=== PATIENT | female | born 1990 | race Two or more races ===

== ENCOUNTER 2016-11-28 21:03 | Emergency (ER) | payer MEDICAID, OTHER ==
[2016-11-28 21:40] LABS: PH,URINE 6.5 (5.0-8.0); SPECIFIC GRAVITY 1.015 (1.001-1.030); URINE APPEARANCE HAZY; URINE BILIRUBIN NEGATIVE (NEGATIVE); URINE BLOOD TRACE (NEGATIVE); URINE COLOR YELLOW; URINE GLUCOSE (UA) NEGATIVE (NEGATIVE); URINE LEUKOCYTE ESTERASE TRACE (NEGATIVE); URINE NITRITE NEGATIVE (NEGATIVE); URINE PROTEIN NEGATIVE (NEGATIVE); URINE UROBILINOGEN NORMAL (0-1 mg/dl)
[2016-11-28 21:44] LABS: ABSOLUTE NEUTROPHIL COUNT 9.6 K/mm3 (1.8-7.7); BASO % 0.3 % (0.2-1.0); EOS # 0.1 (0.0-0.5); EOS % 0.9 % (0.9-2.9); HEMATOCRIT 39.5 % (37.0-47.0); HEMOGLOBIN 13.1 gm/l (12.0-16.0); IMM NEUT # 0.1 K/mm3 (0-0.2); IMM NEUT% 0.4 % (0-1); LYMPH # 2.2 (1.0-4.8); LYMPH % 17.1 % (15-45); MEAN CELL VOLUME 81.6 fl (81.0-99.0); MEAN CORPUSCULAR HEMOGLOBIN 27.1 pg (27.0-31.0); MEAN CORPUSCULAR HGB CONC 33.2 g/dl (33.0-37.0); MEAN PLATELET VOLUME 10.3 fl (7.4-10.4); MONO % 7.5 % (4-12); NEUT % 73.8 % (43-75); PLATELET COUNT 336 K/mm3 (130-400); RED CELL DISTRIBUTION WIDTH 13.2 % (11.5-14.5)
[2016-11-28 21:45] LABS: URINE EPITHELIAL CELLS 15-20 /hpf; URINE RBC 0-1 /hpf; URINE WBC 0-1 /hpf
[2016-11-28 21:46] LABS: URINE BACTERIA 1+
--- NOTE | 2016-11-29 08:12 | US ---
OB ULTRASOUND LESS THAN 14 WEEKS HISTORY: Pelvic pain, 7 weeks 1 day. Transabdominal and transvaginal obstetric ultrasound was performed. FINDINGS: INTRAUTERINE GESTATION: Small saclike structure noted. MEAN SAC DIAMETER: 0.5 cm, corresponding to an age of 4 weeks 3 days. Embryo: Not seen. SONOGRAPHIC MEAN GESTATIONAL AGE: 4 weeks 3 days. SONOGRAPHIC EDC: 08/04/2017. YOLK SAC: Small yolk sac is suggested. SAM-GESTATIONAL HEMORRHAGE: Not identified. RIGHT OVARY: 3.8 x 3.9 x 2.7 cm. LEFT OVARY: Surgically absent. FOCAL ADNEXAL LESIONS: Right paraovarian cyst, 3.6 x 1.8 x 2.5 cm, similar lesion on 2015 pelvic sonography. Complex cystic focus of the right ovary, 2.1 x 1.5 x 1.7 cm. OVARIAN BLOOD FLOW: Documented bilaterally. FREE FLUID: None. IMPRESSION: 1. Findings compatible with very early gestation sonographically dating 4 weeks 3 days. Recommend follow-up with beta hCG values and/or imaging. 2. Redemonstration of right paraovarian cyst. Complex cystic lesion may simply relate to corpus luteum. 3. Status post left nephrectomy. 4. No gross free fluid. Preliminary report relayed to the Emergency Medicine medical service by Dr. Virgen on 11/28/2016 at 2236 hours.
[2016-11-30 12:26] LABS: CHLAMYDIA BD Negative (Negative); N.GONORRHOEAE BD Negative (Negative); SOURCE Urine (())
== END 2016-11-29 00:43 | disposition home or self-care (01) ==
LOC: ED 21:03
DX: O34.81 Maternal care for other abnormalities of pelvic organs, first trimester (principal); N83.201 Unspecified ovarian cyst, right side; Z3A.01 Less than 8 weeks gestation of pregnancy

== ENCOUNTER 2017-01-07 21:01 | Emergency (ER) | payer MEDICAID, OTHER ==
[2017-01-07] MEDS ORDERED: LACTATED RINGERS 1,000 ML ONE (22:42)
[2017-01-07] MEDS ORDERED: ONDANSETRON 4 MG/2ML 2 ML VIAL ONE (22:42)
[2017-01-07 23:14] LABS: ABSOLUTE NEUTROPHIL COUNT 5.7 K/mm3 (1.8-7.7); BASO % 0.4 % (0.2-1.0); EOS % 0.3 % (0.9-2.9); HEMATOCRIT 38.9 % (37.0-47.0); HEMOGLOBIN 12.8 gm/l (12.0-16.0); IMM NEUT% 0.3 % (0-1); LYMPH # 0.6 (1.0-4.8); LYMPH % 8.2 % (15-45); MEAN CORPUSCULAR HEMOGLOBIN 26.3 pg (27.0-31.0); MEAN CORPUSCULAR HGB CONC 32.9 g/dl (33.0-37.0); MEAN PLATELET VOLUME 11.4 fl (7.4-10.4); MONO # 0.9 (0.0-0.8); NEUT % 78.8 % (43-75); PLATELET COUNT 229 K/mm3 (130-400); RED CELL DISTRIBUTION WIDTH 12.8 % (11.5-14.5)
[2017-01-07 23:34] LABS: ALB/GLOB RATIO 1.2 (>1.0); ALBUMIN 3.8 gm/dL (3.5-5.7); CALCIUM 8.8 mg/dL (8.6-10.3)
[2017-01-08 00:11] LABS: SPECIFIC GRAVITY 1.015 (1.001-1.030); URINE APPEARANCE HAZY; URINE BILIRUBIN NEGATIVE (NEGATIVE); URINE BLOOD TRACE (NEGATIVE); URINE COLOR YELLOW; URINE GLUCOSE (UA) NEGATIVE (NEGATIVE); URINE LEUKOCYTE ESTERASE 1+ (NEGATIVE); URINE NITRITE NEGATIVE (NEGATIVE); URINE PROTEIN NEGATIVE (NEGATIVE); URINE UROBILINOGEN NORMAL (0-1 mg/dl)
[2017-01-08 00:17] LABS: URINE BACTERIA 1+; URINE EPITHELIAL CELLS MODERATE /hpf
== END 2017-01-08 00:33 | disposition home or self-care (01) ==
LOC: ED 21:01
DX: O21.0 Mild hyperemesis gravidarum (principal); Z3A.10 10 weeks gestation of pregnancy
CPT/HCPCS: 83690; 85025; 80053; 81001; 99283 ×2; 96374; 96361; J2405; J7120